=== PATIENT | male | born 1955 | race Caucasian/White ===

== ENCOUNTER 2024-07-04 20:45 | Emergency (ER) | payer OTHER, MEDICAID ==
[~2024-07-04] VITALS: Ht 165.1 cm; Wt 70.3 kg
[2024-07-04 21:40] LABS: BASOPHILS % (AUTO) 0.8 % (0.0-2.0); EOSINOPHILS # (AUTO) 0.1 K/uL (0.0-0.7); EOSINOPHILS % (AUTO) 2.8 % (0.0-6.0); HEMATOCRIT 26 % (39-51); HEMOGLOBIN 8.1 g/dL (13.5-17.5); LYMPHOCYTES # (AUTO) 1.4 K/uL (0.8-4.8); LYMPHOCYTES % (AUTO) 29.2 % (20.0-44.0); MEAN CORPUSCULAR HEMOGLOBIN 20 PG (26.0-33.0); MEAN CORPUSCULAR HGB CONC 32 g/dl (31.0-36.0); MEAN CORPUSCULAR VOLUME 62 fL (80-96); MONOCYTES # (AUTO) 0.6 K/uL (0.1-1.30); MONOCYTES % (AUTO) 11.7 % (2.0-12.0); NEUTROPHILS # (AUTO) 2.7 K/uL (1.8-8.9); NEUTROPHILS % (AUTO) 55.5 % (43.0-81.0); PLATELET COUNT (AUTO) 346 K/uL (150-450); WHITE BLOOD COUNT (AUTO) 4.8 K/uL (4.3-11.0)
[2024-07-04 22:02] LABS: APPEARANCE,URINE CLEAR (CLEAR); BILIRUBIN,URINE NEGATIVE (NEGATIVE); BLOOD, URINE NEGATIVE Ery/uL (NEGATIVE); COLOR,URINE YELLOW (YELLOW); KETONES,URINE NEGATIVE (NEGATIVE); LEUKOCYTE ESTERASE ,URINE NEGATIVE (NEGATIVE); NITRITE, URINE NEGATIVE (NEGATIVE); PROTEIN,URINE NEGATIVE (NEGATIVE); UGLUCOSE 1+ mg/dL (NEGATIVE); UROBILINOGEN,URINE 0.2 EU/dL (0.2)
[2024-07-04 22:04] LABS: CALCIUM, SERUM 8.5 mg/dL (8.5-10.1); CARBON DIOXIDE 31 mmol/L (21-32); CHLORIDE 106 mmol/L (98-107); CREATININE 1.3 mg/dL (0.6-1.3); GLUCOSE 224 mg/dL (74-106); POTASSIUM 5.1 mmol/L (3.5-5.1); SODIUM SERUM 141 mmol/L (136-145); UREA NITROGEN, BLOOD 17 mg/dL (7-18)
[2024-07-04 22:17] LABS: ALANINE AMINOTRANSFERASE 12 U/L (12-78); ALKALINE PHOSPHATASE 69 U/L (46-116); ASPARTATE AMINOTRANSFERASE 12 U/L (15-37); BILIRUBIN,DIRECT 0.1 mg/dL (0.0-0.2); BILIRUBIN,TOTAL 0.1 mg/dL (0.2-1.0); LIPASE 18 U/L (16-77); NT-PRO BNP 196 pg/mL (0-125); TOTAL PROTEIN, SERUM 6.2 g/dL (6.4-8.2)
[2024-07-04 22:50] LABS: ADD URINE CULTURE NO; BACTERIA,URINE Rare /HPF (None Seen); RBC,URINE 0-2 /HPF (0-2); WBC,URINE NONE SEEN /HPF (0-3)
[2024-07-04 22:51] LABS: SQUAMOUS EPITHELIAL CELL,UR Rare /HPF (None Seen)
[2024-07-04] MEDS ORDERED: LACT10SO68 PO (22:57)
[2024-07-04 23:13] LABS: ANISOCYTOSIS 1+; EOSINOPHILS % (MANUAL) 3 % (0-4); HYPOCHROMASIA 1+; LYMPHOCYTES % (MANUAL) 24 % (16-48); MONOCYTES % (MANUAL) 5 % (0-11.0); NEUTROPHILS % (MANUAL) 68 (42-76); PLATELET ESTIMATE ADEQUATE
[2024-07-04 23:51] VITALS: BP 125/60; TEMP 98.8; O2SAT 98
== END 2024-07-04 23:52 | disposition home or self-care (01) ==
LOC: ER 21:03
DX: G20.A1 Parkinson's disease without dyskinesia, without mention of fluctuations (principal); E11.65 Type 2 diabetes mellitus with hyperglycemia; K59.00 Constipation, unspecified; R07.89 Other chest pain; Z88.0 Allergy status to penicillin; Z20.822 Contact with and (suspected) exposure to COVID-19
CPT/HCPCS: 36415; 71045-TC; 74018; 80048-TC; 80076-TC; 81001; 83690-TC; 83880; 84484-TC; 85025-TC; 87086-TC